=== PATIENT | male | born 1990 | race Caucasian/White ===

== ENCOUNTER 2016-05-07 14:22 | Emergency (ER) | payer OTHER, SELFPAY ==
[2016-05-07 14:34] VITALS: BP 124/85; PULSE 89; O2SAT 99
--- NOTE | 2016-05-07 14:51 | ERPHSYRPT ---
- History of Present Illness Time Seen by Provider: 05/07/16 14:40 Source: patient Exam Limitations: no limitations Patient Subjective Stated Complaint: PT COMPLAINS OF COUGH X 2 DAYS STATES THAT "MY THROAT IS A LITTLE IRRIATED ALSO" BUT STATES TODAY HE STARTED COUGHING UP A SMALL AMOUNT OF BRIGHT RED BLOOD EVERY TIME HE COUGHS. PT DENIES FEVER. Triage Nursing Assessment: PT ALERT WARM AND DRY RESP EASY NON LABORED LUNDS CLEAR AND EQUAL ON AUSCULATION Physician History: Actually, the cough produces tiny spots x 2 of pinkish substance with sputum. No fever. H/O sinus surgery and seasonal allergies. He works at [employer] He states that he is under stress recently. He does not have GERD, nor does he take PPI med routinely. Timing/Duration: gradual onset Severity: mild ENT Location: throat Prearrival Treatment: no prearrival treatment Modifying Factors: Improves With: coughing Associated Symptoms: other (tiny hemoptysis) Allergies/Adverse Reactions: No Known Drug Allergies Allergy (Unverified 01/02/15 17:21) Home Medications: No Home Meds 1 ea UD 01/02/15 [History] Hx Tetanus, Diphtheria Vaccination/Date Given: Yes Hx Influenza Vaccination/Date Given: No Hx Pneumococcal Vaccination/Date Given: No Immunizations Up to Date: Yes - Review of Systems Constitutional: No Symptoms Eyes: No Symptoms Ears, Nose, & Throat: Throat Pain Respiratory: Cough Cardiac: No Symptoms Abdominal/Gastrointestinal: No Symptoms Musculoskeletal: No Symptoms Skin: No Symptoms Neurological: No Symptoms Psychological: No Symptoms Endocrine: No Symptoms Hematologic/Lymphatic: No Symptoms Immunological/Allergic: No Symptoms - Past Medical History Pertinent Past Medical History: Yes ENT History: Other (note the history of present illness) Other Medical History: ANEMIA - Past Surgical History Past Surgical History: No Other Surgical History: FRACTURES - Social History Smoking Status: Current every day smoker How long have you smoked: 12 YEARS Exposure to second hand smoke: Yes Drug Use: none Patient Lives Alone: No - Nursing Vital Signs Nursing Vital Signs: Initial Vital Signs Temperature 98.6 F Temperature Source Oral Pulse Rate 89 Respiratory Rate 18 Blood Pressure [Right Arm] 124/85 Pain Intensity 3 - Physical Exam General Appearance: mild distress Eye Exam: bilateral eye: normal inspection, EOMI Ear Exam: bilateral ear: auricle normal Nasal Exam: normal inspection Throat Exam: pharynx normal Neck Exam: normal inspection, non-tender, supple, full range of motion Cardiovascular/Respiratory Exam: chest non-tender, regular rate/rhythm, heart sounds normal Abdominal Exam: no organomegaly Neurologic Exam: alert, oriented x 3, cooperative Skin Exam: normal color, warm, dry SpO2 Interpretation: normal SpO2: 99 Oxygen Delivery: Room Air - Course Nursing assessment & vital signs reviewed: Yes - Progress Progress: unchanged Counseled pt/family regarding: need for follow-up (PCP 1 week) - Departure Time of Disposition: 14:50 Departure Disposition: Home Clinical Impression: Hemoptysis, unspecified Sinusitis Qualifiers: Sinusitis location: unspecified location Chronicity: unspecified Qualified Code (s): J32.9 - Chronic sinusitis, unspecified Condition: Stable Critical Care Time: No Prescriptions: Azithromycin [Zithromax] 0 tab PO UD #6 tablet Omeprazole 20 MG [Prilosec 20 mg] 20 mg PO DAILY #30 capsule.
== END 2016-05-07 15:17 | disposition home or self-care (01) ==
LOC: ED 14:22
DX: R04.2 Hemoptysis (principal); J32.9 Chronic sinusitis, unspecified
CPT/HCPCS: 99283

== ENCOUNTER 2016-06-01 10:55 | Emergency (ER) | payer OTHER, SELFPAY ==
[2016-06-01] MEDS ORDERED: TORAdol 30 mg Injection IM ONE (12:07)
[2016-06-01] MEDS ORDERED: Norflex 60 MG/2 ML IM ONE (12:07)
--- NOTE | 2016-06-01 12:08 | ERPHSYRPT ---
- History of Present Illness Time Seen by Provider: 06/01/16 11:57 Source: patient Exam Limitations: clinical condition Patient Subjective Stated Complaint: pt states since this morning he has had mid back pain. states he has had this pain off and on several differnt times. 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 Triage Nursing Assessment: pt pink, warm, dry. no deformity noted to back. pt ambulated into Er without difficulty. pt on phone during triage. Physician History: PATIENT WITH A HISTORY OF LOW BACK PAIN FOR 2 YEARS, PROGRESSIVELY WORSE. 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 DENIES RADIATION ON PAIN INTO HIS BUTTOCKS OR LEGS, LOSS OF BOWEL OR BLADDER FUNCTION. Timing/Duration: week(s) Method of Injury: bending, twisted Quality: sharp Back Pain Location: lumbar spine Severity of Pain-Max: moderate Severity of Pain-Current: moderate Modifying Factors: Improves With: movement Associated Symptoms: muscle spasms Previous symptoms: same symptoms as today Allergies/Adverse Reactions: No Known Drug Allergies Allergy (Unverified 06/01/16 11:47) Home Medications: No Home Meds 1 ea UD 06/01/16 [History] Hx Tetanus, Diphtheria Vaccination/Date Given: Yes (up to date) Hx Influenza Vaccination/Date Given: No Hx Pneumococcal Vaccination/Date Given: No Immunizations Up to Date: Yes - Review of Systems Constitutional: No Fever, No Chills Eyes: No Symptoms Ears, Nose, & Throat: No Symptoms Respiratory: No Symptoms, No Cough, No Dyspnea Cardiac: No Symptoms, No Chest Pain, No Edema, No Syncope Abdominal/Gastrointestinal: No Symptoms, No Abdominal Pain, No Nausea, No Vomiting, No Diarrhea Genitourinary Symptoms: No Symptoms, No Dysuria Musculoskeletal: Back Pain, No Neck Pain Skin: No Symptoms, No Rash Neurological: No Symptoms, No Dizziness, No Focal Weakness, No Sensory Changes Psychological: No Symptoms Endocrine: No Symptoms All Other Systems: Reviewed and Negative - Past Medical History Pertinent Past Medical History: No ENT History: Other (note the history of present illness) Other Medical History: ANEMIA - Past Surgical History Past Surgical History: No Other Surgical History: FRACTURES - Social History Smoking Status: Former smoker How long have you smoked: 12 YEARS Exposure to second hand smoke: No Drug Use: none Patient Lives Alone: No - Nursing Vital Signs Temperature: 97.5 F Temperature Source: Oral Pulse Rate: 75 Respiratory Rate: 18 Pain Intensity: 4 - Physical Exam General Appearance: no apparent distress, alert Eye Exam: PERRL/EOMI, eyes nml inspection Neck Exam: normal inspection, non-tender, supple, full range of motion, No meningismus, No midline tenderness Respiratory Exam: normal breath sounds, lungs clear, No respiratory distress Cardiovascular Exam: regular rate/rhythm, normal heart sounds Gastrointestinal Exam: soft, No tenderness, No mass Back Exam: normal inspection, normal range of motion, vertebral tenderness, decreased range of motion, muscle spasm (L-1 TO L-5, WITH PARASPINAL TENDERNESS) Extremity Exam: normal inspection, normal range of motion, No calf tenderness, No pedal edema Peripheral Pulses: carotid (R): 2+, carotid (L): 2+, femoral (R): 2+, femoral (L ): 2+, dorsalis-pedis (R): 2+ Neurologic Exam: alert, oriented x 3, cooperative, plush brusher II-XII nml as tested, normal mood/affect, nml station & gait, sensation nml, No motor deficits Skin Exam: normal color, warm, dry, No rash SpO2 Interpretation: normal SpO2: 96 Oxygen Delivery: Room Air - Radiology Exams L-Spine X-ray Interpretation: Discussed w/ radiologist, No Fracture, No Subluxation, Other (THERE IS MILD BILATERAL DEGENERATIVE FACET ARTHROPATHY) Ordered Tests: Active Orders 24 hr Category Date Time Status LUMBAR COMPLETE (MIN 4 VIEWS) Stat Exams 06/01/16 12:08 Taken Medication Summary Discontinued Medications Generic Name Dose Route Start Last Admin Trade Name Manish PRN Reason Stop Dose Admin Ketorolac Tromethamine 60 mg 06/01/16 12:07 06/01/16 12:34 Toradol 30 Mg Injection IM 06/01/16 12:08 60 mg STAT ONE Administration Orphenadrine Citrate 60 mg 06/01/16 12:07 06/01/16 12:35 Norflex 60 Mg/2 Ml IM 06/01/16 12:08 60 mg STAT ONE Administration - Progress Progress: improved Progress Note: 06/01/16 12:41 PATIENT ADMINISTERED TORADOL 60MG IM, NORFLEX 10MG IM Counseled pt/family regarding: diagnosis, need for follow-up, rad results - Departure Time of Disposition: 13:00 Departure Disposition: Home Clinical Impression: CHRONIC LOW BACK PAIN Condition: Stable Critical Care Time: No Additional Instructions: BEGIN TORADOL 10MG EVERY 6 HOURS FOR MILD TO MODERATE PAIN. NORFLEX 100MG TWICE DAILY FOR MUSCLE SPASMS. TYLENOL #3 EVERY 4 HOURS FOR SEVERE PAIN. CONSULT YOUR FAMILY PHYSICIAN FOR EVALUATION IN 1 WEEK. Prescriptions: Codeine Phosphate/APAP #3 [Tylenol #3 Tablet] 1 tab PO Q4HPRN PRN #15 tablet PRN Reason: Pain Ketorolac Tromethamine [Toradol] 10 mg PO Q6H PRN PRN #20 tablet PRN Reason: Pain Orphenadrine Citrate 100 mg [Norflex 100 MG Tablet] 100 mg PO BIDPRN PRN # 10 tab PRN Reason: Muscle Spasms
[2016-06-01] MEDS ORDERED: TORAdol 30 mg Injection ONE (12:33)
[2016-06-01] MEDS ORDERED: Norflex 60 MG/2 ML ONE (12:33)
--- NOTE | 2016-06-01 12:44 | XRAY ---
Indication: Low back pain. No known injury. Comparison: None 5 views of the lumbar spine demonstrates 5 lumbar vertebral segments in normal alignment with L5-S1 minimal disc space narrowing and mild bilateral degenerative facet arthropathy. No other bony, articular, or soft tissue abnormalities.
[2016-06-01 13:28] VITALS: BP 129/80; PULSE 74; O2SAT 99
== END 2016-06-01 13:28 | disposition home or self-care (01) ==
LOC: ED 10:55
DX: M54.5 Low back pain (principal); G89.29 Other chronic pain; X50.0XXA Overexertion from strenuous movement or load, initial encounter; Y92.512 Supermarket, store or market as the place of occurrence of the external cause
CPT/HCPCS: 72110; 96372; 99284; J1885; J2360

== ENCOUNTER 2017-08-29 16:36 | Emergency (ER) | payer OTHER, SELFPAY ==
--- NOTE | 2017-08-29 17:10 | ERPHSYRPT ---
- History of Present Illness Time Seen by Provider: 08/29/17 17:04 Historian: patient Exam Limitations: no limitations Patient Subjective Stated Complaint: pt reports chest pain and soreness all over beginning a few days ago-states pain worsens with movement or coughing or deep breathing-states if he pushes on his chest pain increases-reports intermittant cough with clear sputum Triage Nursing Assessment: pt pink warm and [id number] resp distress ntoed- right radial pulse regular and strong-no retractions ntoed-tenderness noted with palp Physician History: The patient is a 26-year-old male with his girlfriend complaining that he has left-sided chest soreness because of how he performs his work duties. He has soreness in his left upper chest wall. This has been going on for 3-4 days. He has been working for 4 weeks. 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 He thinks that he changed his position at one point and cause some injury to his chest. It hurts when he touches the area. It hurts when he takes a deep breath. It hurts when he moves his torso. He has not taken any cync-ujk-bisabth medicines. Timing/Duration: day(s) (4), gradual onset, worse Activities at Onset: activity Quality: aching Location: central (left) Chest Pain Radiation: no radiation Severity of Pain-Max: moderate Severity of Pain-Current: moderate Modifying Factors: Improves With: nothing Associated Symptoms: hurts to breathe Prior Chest Pain/Cardiac Workup: no prior chest pain Nitro Today/Relief: no nitro taken today Aspirin Treatment Today: no aspirin today Allergies/Adverse Reactions: No Known Drug Allergies Allergy (Verified 08/29/17 16:40) Home Medications: No Reportable Medications [No Reported Medications] 08/29/17 [History] Hx Tetanus, Diphtheria Vaccination/Date Given: Yes Hx Influenza Vaccination/Date Given: No Hx Pneumococcal Vaccination/Date Given: No Immunizations Up to Date: Yes - Review of Systems Constitutional: No Fever, No Chills Eyes: No Symptoms Ears, Nose, & Throat: No Symptoms Respiratory: No Cough, No Dyspnea Cardiac: Chest Pain Abdominal/Gastrointestinal: No Abdominal Pain, No Nausea, No Vomiting, No Diarrhea Genitourinary Symptoms: No Dysuria Musculoskeletal: No Back Pain, No Neck Pain Skin: No Rash Neurological: No Dizziness, No Focal Weakness, No Sensory Changes Psychological: No Symptoms Endocrine: No Symptoms Hematologic/Lymphatic: No Symptoms Immunological/Allergic: No Symptoms All Other Systems: Reviewed and Negative - Past Medical History Pertinent Past Medical History: No ENT History: Other (note the history of present illness) Other Medical History: ANEMIA - Past Surgical History Past Surgical History: Yes Musculoskeletal: Orthopedic Surgery Other Surgical History: FRACTURES - Social History Smoking Status: Current every day smoker How long have you smoked: yrs Exposure to second hand smoke: Yes Drug Use: none Patient Lives Alone: No - Nursing Vital Signs Nursing Vital Signs: Initial Vital Signs Temperature 98.3 F 08/29/17 16:36 Pulse Rate 77 08/29/17 16:36 Respiratory Rate 18 08/29/17 16:36 Blood Pressure 138/87 08/29/17 16:36 O2 Sat by Pulse Oximetry 100 08/29/17 16:36 Pain Scale Pain Intensity 7 - Physical Exam General Appearance: no apparent distress, alert Eye Exam: PERRL/EOMI, eyes nml inspection Ears, Nose, Throat Exam: normal ENT inspection, moist mucous membranes Neck Exam: normal inspection, non-tender, supple, full range of motion Respiratory Exam: chest tenderness (left upper chest) Cardiovascular Exam: regular rate/rhythm, normal heart sounds Gastrointestinal/Abdomen Exam: soft, No tenderness, No mass Rectal Exam: not done Back Exam: normal inspection, No CVA tenderness, No vertebral tenderness Extremity Exam: normal inspection, normal range of motion Neurologic Exam: alert, oriented x 3, cooperative, normal mood/affect, sensation nml, No motor deficits SpO2 Interpretation: normal SpO2: 100 Oxygen Delivery: Room Air - Radiology Exams Chest X-ray Interpretation: Interpreted by me, Negative Ordered Tests: Active Orders 24 hr Category Date Time Status CHEST 2 VIEWS (PA AND LAT) Stat Exams 08/29/17 17:14 Ordered Medication Summary Discontinued Medications Generic Name Dose Route Start Last Admin Trade Name Priteshq PRN Reason Stop Dose Admin Ketorolac Tromethamine 60 mg 08/29/17 17:14 Toradol 30 Mg Injection IM 08/29/17 17:15 STAT ONE - Departure Time of Disposition: 17:33 Departure Disposition: Home Clinical Impression: Musculoskeletal chest pain Condition: Stable Critical Care Time: No Referrals: DOCTOR,NO FAMILY [Primary Care Provider] - Additional Instructions: You have chest pain on the left side of your chest, likely due to compression of your chest during your work duties. You were given Toradol 60 mg by IM in the ER. Take Tylenol 1000 mg and ibuprofen 800 mg as needed for pain. Apply ice to the area as needed. Try to use more padding to the area while at work.
[2017-08-29] MEDS ORDERED: TORAdol 30 mg Injection IM ONE (17:14)
[2017-08-29] MEDS ORDERED: TORAdol 30 mg Injection ONE (17:29)
[2017-08-29 17:51] VITALS: BP 123/77; PULSE 66; O2SAT 99
--- NOTE | 2017-08-29 20:24 | XRAY ---
Indication: Chest pain. Comparison: None PA/lateral chest hyperinflated and clear with incidental tiny left mid peripheral calcified granuloma. Heart and mediastinal structures within normal limits. Bony thorax intact. Impression: Nonacute hyperinflated chest. Evidence for old granulomatous disease.
== END 2017-08-29 17:51 | disposition home or self-care (01) ==
LOC: ED 16:36
DX: R07.89 Other chest pain (principal); Z72.0 Tobacco use
CPT/HCPCS: 36000; 71046; 96372; 99284; J1885

== ENCOUNTER 2018-06-06 19:12 | Emergency (ER) | payer SELFPAY ==
--- NOTE | 2018-06-06 19:45 | ERPHSYRPT ---
- History of Present Illness Time Seen by Provider: 06/06/18 19:41 Source: patient Exam Limitations: no limitations Physician History: 27-year-old white male arrives with complaint of pain in his left hand proximal to his left fourth MCP joint and including his left fourth MCP joint symptoms since 2:30 this afternoon. Patient states he got his left hand caught between a piece of wood in a roller at work and struck his hand on a piece of metal. He has no skin injury but complains of pain in the left hand. Patient is past medical history includes anemia he apparently has had fractures in the past he is somewhat vague about these but he states he doesn't think that he had any hand fractures on the left. Past surgical history fractures Social history positive tobacco use Occurred: this afternoon (2:30 this afternoon) Method of Injury: other (caught between a roller and a piece of wood at work) Quality: aching Extremities Pain Location: hand: left Modifying Factors: Improves With: movement Associated Symptoms: none, No back pain, No chills, No chest discomfort, No chest pain, No dyspnea, No fever, No jaw pain, No nausea, No neck pain, No sweating, No short of breath, No vomiting Allergies/Adverse Reactions: No Known Drug Allergies Allergy (Verified 06/06/18 19:33) Home Medications: No Reportable Medications [No Reported Medications] 08/29/17 [History] Hx Tetanus, Diphtheria Vaccination/Date Given: Yes Hx Influenza Vaccination/Date Given: No Hx Pneumococcal Vaccination/Date Given: No - Review of Systems Constitutional: No Fever, No Chills Eyes: No Symptoms Ears, Nose, & Throat: No Symptoms Respiratory: No Cough, No Dyspnea Cardiac: No Chest Pain, No Edema, No Syncope Abdominal/Gastrointestinal: No Abdominal Pain, No Nausea, No Vomiting, No Diarrhea Genitourinary Symptoms: No Dysuria Musculoskeletal: Injury, Joint Pain (pain left fourth metacarpal phalangeal joint), Other (left hand pain), No Back Pain, No Neck Pain, No Fall, No Joint Redness Skin: No Rash Neurological: No Dizziness, No Focal Weakness, No Sensory Changes Psychological: No Symptoms Endocrine: No Symptoms All Other Systems: Reviewed and Negative - Past Medical History Pertinent Past Medical History: No ENT History: Other (note the history of present illness) Other Medical History: ANEMIA - Past Surgical History Past Surgical History: Yes Musculoskeletal: Orthopedic Surgery Other Surgical History: FRACTURES - Social History Smoking Status: Current every day smoker How long have you smoked: yrs Exposure to second hand smoke: Yes Drug Use: none Patient Lives Alone: No - Nursing Vital Signs Nursing Vital Signs: Initial Vital Signs Temperature 97.7 F 06/06/18 19:33 Pulse Rate 80 06/06/18 19:33 Respiratory Rate 20 06/06/18 19:33 Blood Pressure 110/73 06/06/18 19:33 O2 Sat by Pulse Oximetry 98 06/06/18 19:33 Pain Scale Pain Intensity 4 - Physical Exam General Appearance: alert Eyes, Ears, Nose, Throat Exam: moist mucous membranes Neck Exam: non-tender, supple Cardiovascular/Respiratory Exam: chest non-tender, normal breath sounds, regular rate/rhythm, no respiratory distress Abdominal Exam: non-tender, No guarding Back Exam: normal inspection, No vertebral tenderness Shoulder Exam: normal inspection, non-tender, no evidence of injury, normal ROM Elbow/Forearm Exam: normal inspection, non-tender, no evidence of injury, normal ROM Wrist Exam: normal inspection, non-tender, no evidence of injury, bone tenderness (pain overlying distal left fourth metacarpal and fourth metacarpal phalangeal joint), No normal ROM (pain with movement left fourth metacarpal phalangeal joint) DTR - Upper Extremity Exam: tricep (R): 2+, tricep (L): 2+ Neuro/Tendon Exam: normal sensation, normal motor functions Mental Status Exam: alert, oriented x 3, cooperative Skin Exam: normal color, warm, dry SpO2 Interpretation: normal (98%) - Course Nursing assessment & vital signs reviewed: Yes - Radiology Exams Left Hand X-ray Interpretation: Interpreted by me, Negative, No Fracture, No Subluxation Ordered Tests: Active Orders 24 hr Category Date Time Status HAND (MINIMUM 3 VIEWS) Stat Exams 06/06/18 19:40 Taken - Progress Progress: improved Progress Note: 06/06/18 20:03 27-year-old white male arrives with complaint of pain in his left hand especially overlying the left distal fourth metacarpal and metacarpal phalangeal joint symptoms since 2:30 he states he caught his hand between a roller and a piece of wood at work today. Patient with no skin injuries he is tender overlying the left metacarpal phalangeal joint and distal left fourth metacarpal. I've offered the patient pain medications (Toradol) he states he really doesn't need anything for pain. X-ray of the patient's left hand negative fracture negative subluxation. Patient with full range of motion to his left hand he is now holding onto his cell phone and using his left hand he has good capillary refill to all fingers sensation intact to all fingers left radial ulnar pulses are intact 2 over 4 he does have some a mild tenderness overlying the left fourth metacarpal phalangeal joint. I've offered the patient Naprosyn he states he will take Advil or Tylenol. Will go ahead and discharge patient - Departure Departure Disposition: Home Clinical Impression: Contusion of left hand Qualifiers: Encounter type: initial encounter Qualified Code(s): S60.222A - Contusion of left hand, initial encounter Condition: Fair Critical Care Time: No Referrals: DOCTOR,NO FAMILY [Primary Care Provider] - Additional Instructions: Return home. Cold packs left hand 24-48 hours. Advil every 6 hours or Tylenol every 4 hours as needed for pain. Follow-up with your company symptoms no better in 48 hours or persist longer than one week. Return for acute distress or for severe symptoms. Your x-rays have been preliminarily read they will be reread tomorrow you'll be contacted if any discrepancies are noted.
[2018-06-06 19:47] VITALS: O2SAT 98
[2018-06-06 20:18] VITALS: BP 108/65; PULSE 88
--- NOTE | 2018-06-07 08:51 | XRAY ---
Indication: Pain following crush injury. Comparison: None 3 views of the left hand obtained. No bony, articular, or soft tissue abnormalities.
== END 2018-06-06 20:18 | disposition home or self-care (01) ==
LOC: ED 19:12
DX: S60.222A Contusion of left hand, initial encounter (principal); M79.642 Pain in left hand; M79.645 Pain in left finger(s); W31.1XXA Contact with metalworking machines, initial encounter; Y99.0 Civilian activity done for income or pay
CPT/HCPCS: 73130; 99283

== ENCOUNTER 2018-06-16 10:58 | Emergency (ER) | payer OTHER ==
--- NOTE | 2018-06-16 11:07 | ERPHSYRPT ---
- History of Present Illness Time Seen by Provider: 06/16/18 11:06 Source: patient Exam Limitations: no limitations Physician History: 27 y/o right handed white male presents to ED immediately after an injury to pts right index finger. pts tip of finger removed in woodchipper. unable to save tip of finger. destroyed in woodchipper. pts tetanus is utd per pt. Occurred: just prior to arrival Method of Injury: other (woodchipper injury) Quality: aching, throbbing Severity of Pain-Max: moderate Severity of Pain-Current: moderate Extremities Pain Location: 2nd finger: right Modifying Factors: Improves With: movement Associated Symptoms: none Allergies/Adverse Reactions: No Known Drug Allergies Allergy (Verified 06/16/18 11:08) Hx Tetanus, Diphtheria Vaccination/Date Given: Yes Hx Influenza Vaccination/Date Given: No Hx Pneumococcal Vaccination/Date Given: No - Review of Systems Constitutional: No Symptoms Eyes: No Symptoms Ears, Nose, & Throat: No Symptoms Respiratory: No Symptoms Cardiac: No Symptoms Abdominal/Gastrointestinal: No Symptoms Genitourinary Symptoms: No Symptoms Musculoskeletal: No Symptoms, Other (distal right 2nd digit amputated) Skin: No Symptoms Neurological: No Symptoms Psychological: No Symptoms Endocrine: No Symptoms Hematologic/Lymphatic: No Symptoms Immunological/Allergic: No Symptoms All Other Systems: Reviewed and Negative - Past Medical History Pertinent Past Medical History: No Neurological History: No Pertinent History ENT History: Other (note the history of present illness) Cardiac History: No Pertinent History Respiratory History: No Pertinent History Endocrine Medical History: No Pertinent History Musculoskeletal History: No Pertinent History GI Medical History: No Pertinent History History: No Pertinent History Psycho-Social History: No Pertinent History Male Reproductive Disorders: No Pertinent History Other Medical History: ANEMIA - Past Surgical History Past Surgical History: Yes Neuro Surgical History: No Pertinent History Cardiac: No Pertinent History Respiratory: No Pertinent History Gastrointestinal: No Pertinent History Genitourinary: No Pertinent History Musculoskeletal: Orthopedic Surgery Male Surgical History: No Pertinent History Other Surgical History: FRACTURES - Social History Smoking Status: Current every day smoker How long have you smoked: yrs Exposure to second hand smoke: Yes Drug Use: none Patient Lives Alone: No - Nursing Vital Signs Nursing Vital Signs: Initial Vital Signs Temperature 97.9 F 06/16/18 10:59 Pulse Rate 90 06/16/18 10:59 Respiratory Rate 18 06/16/18 10:59 Blood Pressure 111/79 06/16/18 10:59 O2 Sat by Pulse Oximetry 99 06/16/18 10:59 Pain Scale Pain Intensity 8 - Physical Exam General Appearance: mild distress, alert, anxiety Eyes, Ears, Nose, Throat Exam: normal ENT inspection, moist mucous membranes Neck Exam: normal inspection, non-tender, supple, full range of motion Cardiovascular/Respiratory Exam: chest non-tender Abdominal Exam: non-tender Shoulder Exam: normal inspection, non-tender, no evidence of injury, normal ROM Elbow/Forearm Exam: normal inspection, non-tender, no evidence of injury, normal ROM Wrist Exam: normal inspection, non-tender, no evidence of injury, normal ROM Hand Exam: laceration (and distal ip joint amputated. oozing from site. tendon function intact. ) Neuro/Tendon Exam: normal sensation, normal motor functions, normal tendon functions, responds to pain Mental Status Exam: alert, oriented x 3, cooperative Skin Exam: normal color, warm, dry SpO2 Interpretation: normal O2 Delivery: Room Air Procedures - Laceration/Wound Repair Right Finger Wound Location: Right Wound Explored: to base Irrigated: Yes Hibiclens Prep: Yes Anesthesia: 1% Lidocaine Volume Anesthetic (ccs): 3 Progress: 06/16/18 11:57 wound explored after 3ml 1% lidocaine plain. silver nitrate sticks for cauterization. bacitracin ointment applied. RN applied nonstick dressing and bandage. pt juan well. will arrange hand surgeon appt. Ordered Tests: Active Orders 24 hr Category Date Time Status Wound Care STAT Care 06/16/18 12:25 Active HAND (MINIMUM 3 VIEWS) Stat Exams 06/16/18 11:25 Completed Urine Triage Profile Stat Lab 06/16/18 12:16 Uncollected Medication Summary Discontinued Medications Generic Name Dose Route Start Last Admin Trade Name Freq PRN Reason Stop Dose Admin Bacitracin Zinc 0.9 gm 06/16/18 11:23 06/16/18 11:40 Baciguent Packet TP 06/16/18 11:24 0.9 gm STAT ONE Administration Bacitracin Zinc Confirm 06/16/18 11:25 Baciguent Packet Administered 06/16/18 11:26 Dose 1 gm .ROUTE .STK-MED ONE Cephalexin HCl 500 mg 06/16/18 11:26 06/16/18 11:42 Keflex 500 Mg PO 06/16/18 11:27 500 mg STAT ONE Administration Cephalexin HCl Confirm 06/16/18 11:42 Keflex 500 Mg Administered 06/16/18 11:43 Dose 500 mg .ROUTE .STK-MED ONE Lidocaine HCl 5 ml 06/16/18 11:23 06/16/18 11:41 Xylocaine 1% Hcl 20 Ml Mdv IJ 06/16/18 11:24 5 ml STAT ONE Administration Lidocaine HCl Confirm 06/16/18 11:25 Xylocaine 1% Hcl 20 Ml Mdv Administered 06/16/18 11:26 Dose 5 ml .ROUTE .STK-MED ONE Silver Nitrate 1 pkt 06/16/18 11:25 06/16/18 11:41 Arzol Silver Nitrate Applicator TP 06/16/18 11:26 1 pkt STAT ONE Administration Silver Nitrate Confirm 06/16/18 11:25 Arzol Silver Nitrate Applicator Administered 06/16/18 11:26 Dose 1 pkt TP .STK-MED ONE - Progress Progress: improved, pain not gone completely, re-examined Progress Note: 06/16/18 12:33 spoke to Gwen at [facility] for Drs. Clemens/Rosalind hand surgeons. We are to fax face sheet demographics and xray report to . they will review then contact patient and arrange appt. pt to receive disc as well. Counseled pt/family regarding: diagnosis, need for follow-up, rad results - Departure Departure Disposition: Home Clinical Impression: Fingertip amputation, Open fracture of tuft of distal phalanx of finger Condition: Stable Critical Care Time: No Referrals: DOCTOR,NO FAMILY [Primary Care Provider] - Additional Instructions: keep bandage in place until evaluated by hand surgeon. Drs. Boyer or [facility] office will contact you to arrange appointment. if you have not heard from them by end of the day, call [phone] after 0830 tomorrow morning. Prescriptions: Hydrocodone/APAP 5/325 [[place] 5/325 mg] 1 each PO Q6H PRN PRN #10 tablet MDD 4 PRN Reason: Pain Cephalexin Mh 500 mg [Keflex 500 mg] 500 mg PO TID #21 capsule
[2018-06-16 11:17] VITALS: PULSE 90; O2SAT 99
[2018-06-16] MEDS ORDERED: BACIGUENT PACKET TP ONE (11:23)
[2018-06-16] MEDS ORDERED: XYLOCAINE 1% HCL 20 ML MDV IJ ONE (11:23)
[2018-06-16] MEDS ORDERED: ARZOL Silver Nitrate Applicator TP ONE ×2 (11:25)
[2018-06-16] MEDS ORDERED: XYLOCAINE 1% HCL 20 ML MDV ONE (11:25)
[2018-06-16] MEDS ORDERED: BACIGUENT PACKET ONE (11:25)
[2018-06-16] MEDS ORDERED: KEFLEX 500 MG PO ONE (11:26)
[2018-06-16] MEDS ORDERED: KEFLEX 500 MG ONE (11:42)
--- NOTE | 2018-06-16 12:25 | XRAY ---
Indication: 2nd finger pain following injury. 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 No other bony, articular, or soft tissue abnormalities.
[2018-06-16 13:06] VITALS: BP 122/76
== END 2018-06-16 13:11 | disposition home or self-care (01) ==
LOC: ED 10:58
DX: S62.660B Nondisplaced fracture of distal phalanx of right index finger, initial encounter for open fracture (principal); W31.89XA Contact with other specified machinery, initial encounter; Y93.89 Activity, other specified
CPT/HCPCS: 73130; 80307; 99284; A9270-GY

== ENCOUNTER 2019-06-05 22:17 | Emergency (ER) | payer MEDICAID, OTHER ==
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
[2019-06-05 23:15] VITALS: O2SAT 99
[2019-06-06 00:22] VITALS: BP 116/89; PULSE 72
== END 2019-06-06 00:13 | disposition home or self-care (01) ==
LOC: ED 22:17
DX: Z02.89 Encounter for other administrative examinations (principal); V89.2XXA Person injured in unspecified motor-vehicle accident, traffic, initial encounter; Y93.89 Activity, other specified; Y92.410 Unspecified street and highway as the place of occurrence of the external cause; Z72.89 Other problems related to lifestyle; Z72.0 Tobacco use
CPT/HCPCS: 36415; 80307; 99284; G0480

== ENCOUNTER 2023-02-21 09:38 | Emergency (ER) | payer MEDICAID, OTHER ==
--- NOTE | 2023-02-21 09:45 | ERPHSYRPT ---
- History of Present Illness Time Seen by Provider: 02/21/23 09:45 Source: patient, family Exam Limitations: no limitations Physician History: pt presents with ear ache right ear for a few days and some ST. After risks/benefits discussion - He declines covid, strep, and other testing/ imaging blood work or IV at this time, rather wishes to proceed on AB as indicated for tonsilar exudate, wihtout furhter testing in ER at this time, , has normal mental status and the capacity to make this choice. He has inflamed TM right ear, some erythema throat and tonsilar exudate, but swallowing OK in ER with normal voice, and has no SOBreath or CP. No N or V. CHest clear Ht reg without M. Neck supple without swelling abd nontender. No rash. Timing/Duration: gradual onset Severity: moderate ENT Location: ear (R) Prearrival Treatment: no prearrival treatment Associated Symptoms: ear pain (R), sore throat Allergies/Adverse Reactions: Penicillins Adverse Reaction (Mild, Verified 02/21/23 10:19) Rash Hx Tetanus, Diphtheria Vaccination/Date Given: Yes Hx Influenza Vaccination/Date Given: No Hx Pneumococcal Vaccination/Date Given: No - Review of Systems Constitutional: No Fever, No Chills Eyes: No Symptoms Ears, Nose, & Throat: Ear Pain Respiratory: No Cough, No Dyspnea Cardiac: No Chest Pain, No Edema, No Syncope Abdominal/Gastrointestinal: No Abdominal Pain, No Nausea, No Vomiting, No Diarrhea Genitourinary Symptoms: No Dysuria Musculoskeletal: No Back Pain, No Neck Pain Skin: No Rash Neurological: No Dizziness, No Focal Weakness, No Sensory Changes Psychological: No Symptoms Endocrine: No Symptoms Hematologic/Lymphatic: No Symptoms Immunological/Allergic: No Symptoms All Other Systems: Reviewed and Negative - Past Medical History Pertinent Past Medical History: No Neurological History: No Pertinent History ENT History: Other (note the history of present illness) Cardiac History: No Pertinent History Respiratory History: No Pertinent History Endocrine Medical History: No Pertinent History Musculoskeletal History: No Pertinent History GI Medical History: No Pertinent History History: No Pertinent History Psycho-Social History: No Pertinent History Male Reproductive Disorders: No Pertinent History Other Medical History: ANEMIA - Past Surgical History Past Surgical History: Yes Neuro Surgical History: No Pertinent History Cardiac: No Pertinent History Respiratory: No Pertinent History Gastrointestinal: No Pertinent History Genitourinary: No Pertinent History Musculoskeletal: Orthopedic Surgery Male Surgical History: No Pertinent History Other Surgical History: FRACTURES - Social History Smoking Status: Current every day smoker How long have you smoked: yrs Exposure to second hand smoke: Yes Drug Use: none Patient Lives Alone: No - Nursing Vital Signs Nursing Vital Signs: Initial Vital Signs Temperature 98.2 F 02/21/23 10:20 Pulse Rate 87 02/21/23 10:20 Respiratory Rate 18 02/21/23 10:20 Blood Pressure 102/76 02/21/23 10:20 O2 Sat by Pulse Oximetry 92 L 02/21/23 10:20 Pain Scale Pain Intensity 6 - Physical Exam General Appearance: no apparent distress, alert Eye Exam: bilateral eye: PERRL, EOMI Ear Exam: right ear: TM red, TM bulging, left ear: TM normal Nasal Exam: normal inspection Throat Exam: moist mucus membranes, tonsillar exudate, No dental tenderness Neck Exam: supple, trachea midline Cardiovascular/Respiratory Exam: normal breath sounds, regular rate/rhythm Abdominal Exam: non-tender, soft Neurologic Exam: alert, oriented x 3, sensation nml, No motor deficits Skin Exam: normal color, warm, dry SpO2 Interpretation: normal SpO2: 97 O2 Delivery: Room Air - Progress Progress: improved, re-examined Progress Note: 02/21/23 11:39 pt O 2 sat is rechecked on other finger as the one used that generated low reading had partial amputation previously and lots of scar tissue. recheck on room air was 97%. 02/21/23 11:45 pt is advised that there still could be undetected conditions such as Covid , and even abscess, but he prefers to defer any further testing at this time and have trial of AB first and has the capacity to make this choice. He is advised to SQ until symptoms resolve. Counseled pt/family regarding: diagnosis, need for follow-up Medical Desision Making - Discussion of managment Agreed on:: Treatment plan, need for follow-up - Diagnostic Testing Diagnostic test were ordered, analyzed, and reviewed by me: No - Risk of complications The pt has a mod risk of morbidity or mortality based on: Need for prescription drug management - Departure Departure Disposition: Home Clinical Impression: ROM (right otitis media), Acute bacterial tonsillitis Condition: Good Critical Care Time: No Referrals: SYED COHN MD [Primary Care Provider] - Follow up/PCP as directed Instructions: Sore Throat, Adult (DC), Ear Infections in Adults (DC) Additional Instructions: followup with your DrOsmany this week to recheck ear and throat. return meantime if trouble swallowing , short of breath or any other concerns as there can sometimes be progression such as to pneumonia or abscess in thraot and a recheck is important. also self quarantine until symptoms resolve in case of Covid. Prescriptions: Azithromycin [Azithromycin 250 mg Pack] 250 mg PO UD #6 tablet
[2023-02-21 10:33] VITALS: RESP 18; TEMP 98.2
[2023-02-21 10:34] VITALS: PULSE 76
[2023-02-21 11:45] VITALS: O2SAT 97
[2023-02-21 11:54] VITALS: BP 121/73
== END 2023-02-21 12:03 | disposition home or self-care (01) ==
LOC: ED 09:38
DX: H66.91 Otitis media, unspecified, right ear (principal); J03.90 Acute tonsillitis, unspecified; H92.01 Otalgia, right ear; Z72.0 Tobacco use
CPT/HCPCS: 99281

== ENCOUNTER 2023-08-11 11:12 | Emergency (ER) | payer OTHER ==
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
[2023-08-11 11:32] VITALS: BP 94/74; PULSE 87; RESP 18; TEMP 97; O2SAT 98
== END 2023-08-11 12:43 | disposition home or self-care (01) ==
LOC: ED 11:12
DX: S61.215A Laceration without foreign body of left ring finger without damage to nail, initial encounter (principal); W20.8XXA Other cause of strike by thrown, projected or falling object, initial encounter; T23.242A Burn of second degree of multiple left fingers (nail), including thumb, initial encounter; X19.XXXA Contact with other heat and hot substances, initial encounter; Z72.0 Tobacco use
CPT/HCPCS: 12001; 99281

== ENCOUNTER 2023-11-15 15:50 | Emergency (ER) | payer BC, OTHER ==
[2023-11-15 16:04] VITALS: PULSE 89; RESP 16; O2SAT 99
--- NOTE | 2023-11-15 16:45 | ERPHSYRPT ---
- History of Present Illness Time Seen by Provider: 11/15/23 16:10 Source: patient Exam Limitations: no limitations Patient Subjective Stated Complaint: Laceration to bridge of nose, Right eye injury Triage Nursing Assessment: 32 yr old male pt arrives to ED via POV. Pt presents with 1cm laceration to the bridge of his nose an bruised area to the right eye. 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 Pt denies LOC and is not on a blood thinner. Pt's area under right eye is approximately 1.5cm x 1 cm. Pt is alert, oriented and not in distress. Pt states that he is up to date on his tetanus shot. Physician History: Patient came to the ER for around 1 cm horizontal superficial laceration on the bridge of the nose after tree snippers accidentally hit his face. Patient also has bruise near medial part of the right eye. No other injuries or pain Occurred: just prior to arrival Injuries/Pain Location: face Loss of Consciousness: no loss of consciousness Quality: aching Severity of Pain-Max: mild Severity of Pain-Current: mild Modifying Factors: Improves With: nothing Associated Symptoms (Fall): denies symptoms Allergies/Adverse Reactions: No Known Drug Allergies Allergy (Unverified 11/15/23 16:14) Home Medications: No Reportable Medications [No Reported Medications] 11/15/23 [History] Hx Tetanus, Diphtheria Vaccination/Date Given: Yes Hx Influenza Vaccination/Date Given: No Hx Pneumococcal Vaccination/Date Given: No Immunizations Up to Date: No Travel Risk - International Travel Have you traveled outside of the country in past 3 weeks: No - Emerging Infectious Disease Are you exhibiting symptoms associated with any current EIDs: No - Review of Systems Constitutional: No Fever, No Chills Eyes: No Symptoms, No Discharge, No Eye Pain, No Photophobia, No Tearing, No Vision Changes Ears, Nose, & Throat: No Symptoms, Other (1 cm horizontal superficial laceration on the bridge of the nose, bruise near the medial end of the right eye below the right eyelid.), No Ear Pain, No Ear Discharge Respiratory: No Cough, No Dyspnea Cardiac: No Chest Pain, No Edema, No Syncope Abdominal/Gastrointestinal: No Abdominal Pain, No Nausea, No Vomiting, No Diarrhea Genitourinary Symptoms: No Dysuria Musculoskeletal: Other (1 cm horizontal superficial laceration on the bridge of the nose, bruise near the medial end of the right eye below the right eyelid.), No Back Pain, No Neck Pain Skin: No Rash Neurological: No Dizziness, No Focal Weakness, No Sensory Changes Psychological: No Symptoms Endocrine: No Symptoms All Other Systems: Reviewed and Negative - Past Medical History Pertinent Past Medical History: No Neurological History: No Pertinent History ENT History: Other Cardiac History: No Pertinent History Respiratory History: No Pertinent History Endocrine Medical History: No Pertinent History Musculoskeletal History: No Pertinent History GI Medical History: No Pertinent History History: No Pertinent History Psycho-Social History: No Pertinent History Male Reproductive Disorders: No Pertinent History Other Medical History: ANEMIA - Past Surgical History Past Surgical History: Yes Neuro Surgical History: No Pertinent History Cardiac: No Pertinent History Respiratory: No Pertinent History Gastrointestinal: No Pertinent History Genitourinary: No Pertinent History Musculoskeletal: Orthopedic Surgery Male Surgical History: No Pertinent History Other Surgical History: FRACTURES - Social History Smoking Status: Current every day smoker How long have you smoked: yrs Exposure to second hand smoke: Yes Drug Use: marijuana Patient Lives Alone: No - Social Determinants of Health Will the patient participate in the screening: Declined to provide - Nursing Vital Signs Nursing Vital Signs: Initial Vital Signs Blood Pressure 122/82 11/15/23 16:01 O2 Sat by Pulse Oximetry 99 11/15/23 16:01 Pain Scale Pain Intensity 3 - Wheeler Coma Score Best Eye Response (Wheeler): (4) open spontaneously Best Verbal Response (Wheeler): (5) oriented Best Motor Response (Wheeler): (6) obeys commands Wheeler Total: 15 - Physical Exam General Appearance: no apparent distress, alert Head Injury: no evidence of injury Eye Exam: PERRL/EOMI, other (1 cm horizontal superficial laceration on the bridge of the nose, bruise near the medial end of the right eye below the right eyelid.) ENT Exam: airway nml, other (1 cm horizontal superficial laceration on the bridge of the nose, bruise near the medial end of the right eye below the right eyelid.) Neck Exam: normal inspection, No tenderness Respiratory/Chest Exam: normal breath sounds, No chest tenderness, No respiratory distress Cardiovascular Exam: normal heart sounds, regular rate/rhythm Gastrointestinal Exam: soft, No tenderness, No distention, No guarding, No ecchymosis Back Exam: normal inspection, No vertebral tenderness Extremity Exam: normal inspection, normal range of motion, pelvis stable, No deformities Neurologic Exam: alert, oriented x 3, cooperative, sensation nml, No motor deficits Skin Exam: normal color, warm, dry SpO2: 99 Procedures - Laceration/Wound Repair Other Time of Procedure: 16:35 Wound Location: face (Nose) Wound Length (cm): 1 (cm) Wound's Depth, Shape: superficial Wound Explored: clean Irrigated: No Hibiclens Prep: Yes Wound Repaired With: Dermabond Sterile Dressing Applied?: No Splint Applied?: No Sling Applied?: No - Course Nursing assessment & vital signs reviewed: Yes - Progress Progress: improved Progress Note: 11/15/23 16:44 Patient refused any imaging. He says that I have broken my nose multiple times I do not want any more x-rays. Patient says that I just wanted this laceration repair. I want to go home. Counseled pt/family regarding: diagnosis, need for follow-up Medical Desision Making - Risk of complications Minimal Risk: Minimal risk of morbidity - Departure Departure Disposition: Home Clinical Impression: Contusion of face Laceration of nose without complication Qualifiers: Encounter type: initial encounter Qualified Code(s): S01.21XA - Laceration without foreign body of nose, initial encounter Condition: Stable Critical Care Time: No Referrals: SYED COHN MD [Primary Care Provider] - Follow up/PCP as directed Additional Instructions: See PCP for follow-up. Return to the ER for any emergency or new symptoms or worsening symptoms.
[2023-11-15 16:54] VITALS: BP 140/91
== END 2023-11-15 16:50 | disposition home or self-care (01) ==
LOC: ED 15:50
DX: S01.21XA Laceration without foreign body of nose, initial encounter (principal); W20.8XXA Other cause of strike by thrown, projected or falling object, initial encounter; Y93.H2 Activity, gardening and landscaping; Z72.0 Tobacco use
CPT/HCPCS: 12011; 99281

== ENCOUNTER 2024-01-16 18:51 | Emergency (ER) | payer BC, OTHER ==
[2024-01-16 19:11] VITALS: PULSE 84; RESP 18; TEMP 97.8; O2SAT 100
[2024-01-16 19:15] VITALS: BP 101/62
== END 2024-01-16 20:10 | disposition left against medical advice (07) ==
LOC: ED 18:51
DX: S61.512A Laceration without foreign body of left wrist, initial encounter (principal)
CPT/HCPCS: 99281

== ENCOUNTER 2024-10-21 00:22 | Emergency (ER) | payer OTHER ==
[2024-10-21] MEDS ORDERED: HYPERRAB S-D 1500 IU/10 ML VIAL IM ONE (00:43)
[2024-10-21 00:46] VITALS: TEMP 97.4; O2SAT 100
[2024-10-21] MEDS ORDERED: Augmentin 875-125 Tablet ONE (00:49)
[2024-10-21] MEDS ORDERED: TYLENOL 325 MG ONE (00:49)
[2024-10-21] MEDS: TYLENOL 325 MG PO STA (00:50)
[2024-10-21] MEDS: Augmentin 875-125 Tablet PO ONE (00:50)
[2024-10-21] MEDS ORDERED: Adacel Vial IM ONE (00:51)
[2024-10-21] MEDS: Adacel Vial IM ONE (00:57)
[2024-10-21] MEDS: Rabavert 2.5 UNITS IM ONE (01:19)
--- NOTE | 2024-10-21 01:21 | ERPHSYRPT ---
- History of Present Illness Time Seen by Provider: 10/21/24 00:38 Source: patient Exam Limitations: no limitations Patient Subjective Stated Complaint: c/o dog bite Triage Nursing Assessment: patient brought to ED by friend with c/o dog bite. brandi has 7 0.5x 0.25cm bite makers on the medial left forearm and lateral left forearm. patient states that his friend dog attacked and he tried to fight the dog to get the dog off of his friend. patient has a skin tear on the right palm distal to the thumb. patient vitals wnl, rates pain 8/10, gait steady, afebrile, would not bleeding and open to air at tgis time. Physician History: 33-year-old male presents to the emergency room with bilateral upper extremity injuries status post removing a dog that was attacking his friend patient reports his occurred just prior to arrival he is unsure of his tetanus vaccination the unsure as to what the dogs vaccine status patient reports that the dog was being unchanged and then was aggressive against his friend and his friend called for help when the patient was able to get the dog off his friend however the patient suffered scratch kent and abrasions to bilateral upper extremities Occurred: just prior to arrival Quality: constant Severity of Pain-Max: mild Severity of Pain-Current: mild Extremities Pain Location: hand: bilateral Modifying Factors: Improves With: nothing Allergies/Adverse Reactions: No Known Drug Allergies Allergy (Verified 01/16/24 18:59) Hx Tetanus, Diphtheria Vaccination/Date Given: Yes (with in 5 years) Hx Influenza Vaccination/Date Given: No Hx Pneumococcal Vaccination/Date Given: No Travel Risk - International Travel Have you traveled outside of the country in past 3 weeks: No - Emerging Infectious Disease Are you exhibiting symptoms associated with any current EIDs: No - Review of Systems Constitutional: No Fever, No Chills Eyes: No Symptoms Ears, Nose, & Throat: No Symptoms Respiratory: No Cough, No Dyspnea Cardiac: No Chest Pain, No Edema, No Syncope Abdominal/Gastrointestinal: No Abdominal Pain, No Nausea, No Vomiting, No Diarrhea Genitourinary Symptoms: No Dysuria Musculoskeletal: No Back Pain, No Neck Pain Skin: No Rash Neurological: No Dizziness, No Focal Weakness, No Sensory Changes Psychological: No Symptoms Endocrine: No Symptoms All Other Systems: Reviewed and Negative - Past Medical History Pertinent Past Medical History: No Neurological History: No Pertinent History ENT History: Other Cardiac History: No Pertinent History Respiratory History: No Pertinent History Endocrine Medical History: No Pertinent History Musculoskeletal History: No Pertinent History GI Medical History: No Pertinent History History: No Pertinent History Psycho-Social History: No Pertinent History Male Reproductive Disorders: No Pertinent History Other Medical History: ANEMIA - Past Surgical History Past Surgical History: Yes Neuro Surgical History: No Pertinent History Cardiac: No Pertinent History Respiratory: No Pertinent History Gastrointestinal: No Pertinent History Genitourinary: No Pertinent History Musculoskeletal: Orthopedic Surgery Male Surgical History: No Pertinent History Other Surgical History: FRACTURES, right index finger amputation - Social History Smoking Status: Current every day smoker How long have you smoked: yrs Exposure to second hand smoke: Yes Drug Use: none - Social Determinants of Health Will the patient participate in the screening: Declined to provide - Nursing Vital Signs Nursing Vital Signs: Initial Vital Signs Temperature 97.4 F 10/21/24 00:35 Pulse Rate 92 H 10/21/24 00:35 Respiratory Rate 18 10/21/24 00:35 Blood Pressure 134/90 10/21/24 00:35 O2 Sat by Pulse Oximetry 100 10/21/24 00:35 Pain Scale Pain Intensity 8 - Physical Exam General Appearance: alert Eyes, Ears, Nose, Throat Exam: moist mucous membranes Neck Exam: non-tender, supple Cardiovascular/Respiratory Exam: chest non-tender, normal breath sounds, regular rate/rhythm, no respiratory distress Abdominal Exam: non-tender, No guarding Back Exam: normal inspection, No vertebral tenderness Elbow/Forearm Exam: soft tissue tenderness ( 7 0.5x 0.25cm bite makers on the medial left forearm and lateral left forearm), swelling Hand Exam: abrasions (patient has a skin tear on the right palm distal to the thumb. ), soft tissue tenderness Neuro/Tendon Exam: normal sensation, normal motor functions Mental Status Exam: alert, oriented x 3, cooperative Skin Exam: normal color, warm, dry SpO2: 100 - Course Nursing assessment & vital signs reviewed: Yes - Radiology Exams Left Forearm X-ray Interpretation: Interpreted by me, Negative, No Fracture, No Subluxation Ordered Tests: Active Orders 24 hr Category Date Time Status Wound Care STAT Care 10/21/24 01:16 Active FOREARM Stat Exams 10/21/24 01:57 Taken Medication Summary Discontinued Medications Generic Name Dose Route Start Last Admin Trade Name Freq PRN Reason Stop Dose Admin Acetaminophen 650 mg 10/21/24 00:38 10/21/24 01:00 Acetaminophen 325 Mg Tablet PO 10/21/24 00:39 Not Given STAT STA Acetaminophen Confirm 10/21/24 00:49 Acetaminophen 325 Mg Tablet Administered 10/21/24 00:50 Dose 650 mg .ROUTE .STK-MED ONE Amoxicillin/Clavulanate Potassium 875 mg 10/21/24 00:39 10/21/24 00:50 Amox Tr/Potassium Clavulanate 875 Mg Tablet PO 10/21/24 00:40 875 mg STAT ONE Administration Amoxicillin/Clavulanate Potassium Confirm 10/21/24 00:49 Amox Tr/Potassium Clavulanate 875 Mg Tablet Administered 10/21/24 00:50 Dose 875 mg .ROUTE .STK-MED ONE Bacitracin Zinc 0.9 each 10/21/24 01:56 10/21/24 01:58 Bacitracin Packet 1 Each Pckt TP 10/21/24 01:57 0.9 each STAT STA Administration Bacitracin Zinc Confirm 10/21/24 01:58 Bacitracin Packet 1 Each Pckt Administered 10/21/24 01:59 Dose 1 each .ROUTE .STK-MED ONE Diphtheria/Tetanus/Acell Pertussis 0.5 ml 10/21/24 00:41 10/21/24 00:57 Tdap --Diph,Pertuss(Acell),Tet Vac/Pf 0.5 Ml Vial IM 10/21/24 00:42 0.5 ml .ONCE ONE Administration Diphtheria/Tetanus/Acell Pertussis Confirm 10/21/24 00:51 Tdap --Diph,Pertuss(Acell),Tet Vac/Pf 0.5 Ml Vial Administered 10/21/24 00:52 Dose 0.5 ml IM .STK-MED ONE Rabies Immune Globulin 1,500 unit 10/21/24 00:43 Rabies Immune Globulin/Pf 10ml 150 Unit/Ml Vial IM 10/21/24 00:44 .ONCE ONE Rabies Immune Globulin 1,500 units 10/21/24 01:32 10/21/24 01:33 Rabies Immune Globulin/Pf 1,500 Units/5 Ml Vial IM 10/21/24 01:33 1,500 units STAT STA Administration Rabies Vaccine 2.5 units 10/21/24 00:40 10/21/24 01:19 Rabies Vac,Pf Chick-Emb Cell 2.5 Units Kit IM 10/21/24 00:41 2.5 units .ONCE ONE Administration - Progress Progress Note: 10/21/24 01:19 Will offer pain control rabies vaccine Augmentin prescription as well as in the EDWe cleaned the wound irrigated copiously and dressed the wounds - Departure Departure Disposition: Home Clinical Impression: Dog bite Qualifiers: Encounter type: initial encounter Qualified Code(s): W54.0XXA - Bitten by dog, initial encounter Forearm contusion Qualifiers: Encounter type: initial encounter Laterality: left Qualified Code(s): S50.12XA - Contusion of left forearm, initial encounter Condition: Stable Critical Care Time: No Referrals: SYED COHN MD [Primary Care Provider, INTERNAL MEDICINE] - Follow up/PCP as directed Instructions: Animal Bites (DC), Rabies Immune Globulin (Human), Rabies Vaccine Additional Instructions: You need to return to complete for vaccines for rabies. Rabies vaccine was given at the time of the first medical visit, and a dose of vaccine will need to be given again on days 3, 7, and 14 after the first dose Prescriptions: Amox Tr/Potass Clav. 875 mg [Augmentin 875-125 Tablet] 875 mg PO BID 10 Days #20 tablet
[2024-10-21] MEDS: HYPERRAB 300 UNIT/ML 5 ML VIAL IM STA (01:33)
[2024-10-21] MEDS ORDERED: BACIGUENT PACKET ONE (01:58)
[2024-10-21] MEDS: BACIGUENT PACKET TP STA (01:58)
[2024-10-21 02:17] VITALS: BP 98/76; PULSE 98; RESP 19
--- NOTE | 2024-10-21 08:18 | XRAY ---
Indication: Dog bite. Comparison: None 2 view left forearm obtained. No bony, articular, or soft tissue abnormalities.
== END 2024-10-21 02:19 | disposition home or self-care (01) ==
LOC: ED 00:22
DX: S61.451A Open bite of right hand, initial encounter (principal); S50.12XA Contusion of left forearm, initial encounter; W54.0XXA Bitten by dog, initial encounter; Z79.899 Other long term (current) drug therapy; Z72.0 Tobacco use; Z23 Encounter for immunization